=== PATIENT | male | born 1960 | race Caucasian/White ===

== ENCOUNTER 2023-05-24 18:37 | Emergency (ER) | payer OTHER ==
[2023-05-24] MEDS ORDERED: Bacitracin Oint 1 GM U/D Packet TOP ONE (20:45)
[2023-05-24] MEDS ORDERED: Lidocaine 1% 5 ML VIAL INJECT ONE (20:45)
[2023-05-24] MEDS ORDERED: Diphtheria,Pertussis(Acell),Tetanus Vaccine 0.5 ML Syringe IM ONE (20:48)
== END 2023-05-24 21:44 | disposition home or self-care (01) ==
LOC: JP.ED 18:37
DX: S61.212A Laceration without foreign body of right middle finger without damage to nail, initial encounter (principal); X50.0XXA Overexertion from strenuous movement or load, initial encounter; Y99.0 Civilian activity done for income or pay
CPT/HCPCS: 12001; 73140-26-F7; 73140-F7; 90471; 90715; 99283-25